=== PATIENT | female | born 1995 | race Caucasian/White ===

== ENCOUNTER 2017-09-29 12:55 | Emergency (ER) | payer OTHER ==
[2017-09-29 15:15] LABS: URINE BLOOD (Dip) POC 2+ (NEGATIVE); URINE GLUCOSE (Dip) POC Negative (NEGATIVE); URINE KETONES (Dip) POC Negative (NEGATIVE); URINE LEUKOCYTE EST (Dip) POC Negative (NEGATIVE); URINE NITRITE (Dip) POC Negative (NEGATIVE); URINE TOTAL PROTEIN POC Negative (NEGATIVE)
== END 2017-09-29 16:47 | disposition home or self-care (01) ==
LOC: FTE 12:55
DX: N83.201 Unspecified ovarian cyst, right side (principal); N94.10 Unspecified dyspareunia
CPT/HCPCS: 76830; 76856; 81003; 81025; 99284-25

== ENCOUNTER 2018-06-19 20:32 | Emergency (ER) | payer OTHER | END 2018-06-19 21:17 | disposition home or self-care (01) | LOC: FTE 21:17 | DX: L30.9 Dermatitis, unspecified (principal) | CPT/HCPCS: 99283; Z7502 ==

== ENCOUNTER 2018-06-24 18:31 | Emergency (ER) | payer OTHER | END 2018-06-24 20:34 | disposition home or self-care (01) | LOC: FTE 18:31 | DX: D69.0 Allergic purpura (principal) | CPT/HCPCS: 99283; Z7502 ==